=== PATIENT | male | born 1950 | race Hispanic/Latino ===

== ENCOUNTER 2018-06-10 09:54 | Emergency (ER) | payer OTHER ==
[~2018-06-10] VITALS: Ht 165.1 cm; Wt 88.5 kg
[~2018-06-10 09:54] MED LIST: ASPIR 8181 MG PO; DETROL2 MG PO; ESCITALOPRAM OX10 MG PO; HYDROXYZINE HCL25 MG PO; LACTULOSE10 GM/15 M PO; NADOLOL20 MG PO; NITROSTAT0.4 MG SL; SALSALATE500 MG PO; XIFAXAN550 MG PO
--- NOTE | 2018-06-10 14:40 | EKG ---
[facility] [address] [place], [place] [address] Signed Sinus bradycardia Otherwise normal ECG No previous ECGs available Confirmed by LIZBETH SANTIAGO MD ([id number]) on 06/10/2018 2:40:37 PM Electronically Signed By: LIZBETH SANTIAGO MD 06/10/18 1440 PATIENT NAME: IVÁN JEREZ Electrocardiogram DATE OF : 50 PHYSICIAN: LIZBETH SANTIAGO MD REPORT #: [id number] REPORT IS CONFIDENTIAL AND NOT TO BE RELEASED WITHOUT AUTHORIZATION
== END 2018-06-10 13:45 | disposition home or self-care (01) ==
LOC: ED 09:54
DX: R07.9 Chest pain, unspecified (principal); I25.10 Atherosclerotic heart disease of native coronary artery without angina pectoris; I25.2 Old myocardial infarction; Z87.891 Personal history of nicotine dependence; Z79.899 Other long term (current) drug therapy; Z79.82 Long term (current) use of aspirin
CPT/HCPCS: 71045; 80053; 84484; 85025; 93005; 93010; 99285

== ENCOUNTER 2018-12-05 21:02 | Emergency (ER) | payer OTHER ==
[~2018-12-05] VITALS: Ht 165.1 cm; Wt 86.2 kg
[2018-12-05] MEDS ORDERED: SPIRONOLACTONE25 MG PO (21:31)
--- NOTE | 2018-12-06 07:34 | EKG ---
[facility] [address] [facility] [place], [place] [address] Signed Normal sinus rhythm Possible Anterior infarct , age undetermined Abnormal ECG When compared with ECG of 10-JUN-2018 09:57, No significant change was found Confirmed by LIZBETH SANTIAGO MD ([id number]) on 12/06/2018 7:34:23 AM Electronically Signed By: LIZBETH SANTIAGO MD 12/06/18 0734 PATIENT NAME: SOLITARIOIVÁN Electrocardiogram DATE OF : 50 PHYSICIAN: LIZBETH SANTIAGO MD REPORT #: [id number] REPORT IS CONFIDENTIAL AND NOT TO BE RELEASED WITHOUT AUTHORIZATION
== END 2018-12-06 00:03 | disposition home or self-care (01) ==
LOC: ED 21:02
DX: R07.9 Chest pain, unspecified (principal); I25.2 Old myocardial infarction; Z87.891 Personal history of nicotine dependence; Z91.041 Radiographic dye allergy status; Z79.899 Other long term (current) drug therapy; Z79.82 Long term (current) use of aspirin
CPT/HCPCS: 71045; 80053; 84484; 85025; 93005; 93010; 99285-25

== ENCOUNTER 2019-06-08 11:35 | Emergency (ER) | payer OTHER ==
[~2019-06-08] VITALS: Ht 165.1 cm; Wt 86.2 kg
[~2019-06-08 11:35] MED LIST changes: +SPIRONOLACTONE25 MG PO
--- NOTE | 2019-06-09 11:26 | EKG ---
[facility] [address] [place] [address] Signed Sinus bradycardia Nonspecific T wave abnormality Abnormal ECG Confirmed by JOSE HUERTA MD ([id number]) on 06/09/2019 11:25:57 AM Electronically Signed By: JOSE HUERTA MD 06/09/19 1126 PATIENT NAME: IVÁN JEREZ Electrocardiogram DATE OF : 50 PHYSICIAN: JOSE HUERTA MD REPORT #: [id number] REPORT IS CONFIDENTIAL AND NOT TO BE RELEASED WITHOUT AUTHORIZATION
== END 2019-06-08 14:32 | disposition home or self-care (01) ==
LOC: ED 11:35
DX: R07.9 Chest pain, unspecified (principal); K76.9 Liver disease, unspecified; F41.9 Anxiety disorder, unspecified; I25.2 Old myocardial infarction; Z87.891 Personal history of nicotine dependence; Z95.0 Presence of cardiac pacemaker; Z91.041 Radiographic dye allergy status; Z79.899 Other long term (current) drug therapy; Z79.82 Long term (current) use of aspirin
CPT/HCPCS: 80053; 84484; 85025; 93005; 93010; 99285-25

== ENCOUNTER 2019-06-09 07:48 | Emergency (ER) | payer OTHER ==
[~2019-06-09] VITALS: Ht 165.1 cm; Wt 86.2 kg
--- OUTSIDE RECORDS SUMMARY | 2019-06-09 07:50 | XMS ---
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 [place] has no Care Guidelines for this patient. [facility] ([facility] MO.) [facility] T[facility] 4 NOTE: Visits indicate total known visits. ED/C VISIT TRACKING (12 MO.) 06/09/2019 07:[address] 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
--- NOTE | 2019-06-10 09:17 | EKG ---
[facility] [address] [place] [address] Signed Sinus bradycardia with premature atrial complexes Possible Anterior infarct , age undetermined Abnormal ECG When compared with ECG of 08-JUN-2019 11:40, (Unconfirmed) premature atrial complexes are now present Confirmed by JOSE HUERTA MD ([id number]) on 06/10/2019 9:17:07 AM Electronically Signed By: JOSE HUERTA MD 06/10/19 0917 PATIENT NAME: IVÁN JEREZ Electrocardiogram DATE OF : 50 PHYSICIAN: JOSE HUERTA MD REPORT #: [id number] REPORT IS CONFIDENTIAL AND NOT TO BE RELEASED WITHOUT AUTHORIZATION
[2019-06-10] MEDS ORDERED: ESCITALOPRAM OX10 MG PO (10:50)
[2019-06-10] MEDS ORDERED: LACTULOSE10 GM/15 M PO ×2 (10:54→10:56)
[2019-06-10] MEDS ORDERED: DETROL2 MG PO (10:54)
== END 2019-06-09 10:05 | disposition home or self-care (01) ==
LOC: ED 07:48
PROC: 0T9B70Z Drainage of Bladder with Drainage Device, Via Natural or Artificial Opening (ICD-10-PCS; principal; 2019-06-09)
DX: R41.82 Altered mental status, unspecified (principal); K72.90 Hepatic failure, unspecified without coma; I25.2 Old myocardial infarction; Z87.891 Personal history of nicotine dependence; Z95.5 Presence of coronary angioplasty implant and graft; Z91.041 Radiographic dye allergy status; Z79.899 Other long term (current) drug therapy
CPT/HCPCS: 51701; 70450; 80053; 81001; 82140; 84484; 85025; 85610; 85730; 93005; 93010; 99285-25; G0480; J7040

== ENCOUNTER 2019-06-09 12:44 | Observation (INO) | payer OTHER ==
[~2019-06-09] VITALS: Ht 165.1 cm; Wt 93.0 kg
--- OUTSIDE RECORDS SUMMARY | 2019-06-09 12:46 | XMS ---
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 Itzel has no Care Guidelines for this patient. Mag VISIT COUNT (12 MO.) 5 [facility] [place] [facility]. TOTAL 5 NOTE: Visits indicate total known visits. ED/C VISIT TRACKING (12 MO.) 06/09/2019 12:44 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
--- NOTE | 2019-06-09 15:25 | NUR ---
CALL TO DR. HUERTA, REPORTED BLADDER SCAN 580 ML AND PATIENT RESTLESS IN BED TENSE AND MOANING. PATIENT STATES " I NEED TO PEE" WHEN SET UP WITH URINAL IS UNABLE TO URINATE FROM BED. CORRECTION OFFICERS REPORT PATIENT HAS BEEN NEEDING TO STAND TO PEE WITH 4 PEOPLE. NO NEW ORDERS AT THIS TIME. CONTINUE TO ATTEMPT TO ASSIST PATIENT TO URINATE.
--- NOTE | 2019-06-09 16:15 | NUR ---
PATIENT UP TO BSC 2 PERSON ASSIST WITH CORRECTIONAL GUAURDS STANDING BY. PATIENT [place] AND [place] [facility] FOLLOW DIRECTION. APPEARS ANXIOUS, BOWEL MOVEMENT X1 STOOD TO URINATE 50 ML CONCENTRATATED URINE. BACK TO BED. VICE PRESIDENT OF COMMUNICATIONS IN ROOM, CALL LIGHT WITHIN REACH.
--- NOTE | 2019-06-09 16:45 | NUR ---
PATIENT APPEARS RESTLESS IN BED, GRUNTING. 2 PERSON ASSIST WITH GAIT BELT ON ASSISTED PATIENT INTO BATHROOM TO SIT ON TOILET. LARGE LOOSE BM, PATIENT STOOD TO URINATE X2 ATTEMPTS. 350 ML OF CONCENTRATED URINE. BACK TO BED, PATIENT APPEARS CALM. NOW RESTING BACK IN BED WITH EYES CLOSED. VS STABLE.
--- NOTE | 2019-06-09 19:29 | NUR ---
PT REPORT RECIEVED FROM NENA SPANGLER. PT UP IN BATHROOM AT THIS TIME. STATES HE IS NOT FINISHED HAVING A BOWEL MOVEMENT. EOCI GUARDS IN ROOM WITH PATIENT AT THIS TIME.
--- NOTE | 2019-06-09 20:59 | NUR ---
IN ROOM FOR MEDICAITON ADMINISTRATION AND ASSESSMENT. PT ABLE TO SIT ON SIDE OF BED WITH TWO PERSON ASSIST AND TAKE MEDICATIONS. ABLE TO DRINK WATER WITHOUT ISSUE. PT CONTINUES TO BE DISORIENTED TO LOCATION AND SITUATION BUT CAN FOLLOW VERBAL COMMANDS. SPEAKING IN UNINTELLIGIBLE SENTENCES. PT BACK IN BED. TWO PERSON ASSIST TO REPOSITION. GAURDS REMAIN AT BEDSIDE.
--- NOTE | 2019-06-09 21:49 | NUR ---
PT NEEDS TO HAVE BOWEL MOVEMENT. TWO PERSON ASSIST REQUIRED FOR AMBUATION. PT STEADY ON HIS FEET.
--- NOTE | 2019-06-09 22:54 | NUR ---
PT ARRIVED AT 2245 VIA BED FROM ICU, PT WEARING 4 POINT SHACKLES. ACOMPANIED BY 2 EOIC GUARDS. PT ORIENTED TO SELF, AND AFTER SEVERAL CUES REMEMBERED WHO THE PRESIDENT OF THE [place] WAS. INVOLUNTARY ALL OVER TREMORS PRESENT, INVOLUNTARY MOUTH TWITCHING PRESENT TOO. SLOW TO RESPONDS AND UNABLE TO FOLLOW SOME COMMANDS. PT HAS BEEN NPO WITH AAT DIET, IVF INFUSING, PT DENIES C/O PAIN
--- NOTE | 2019-06-09 23:43 | NUR ---
2 PA TO BEDSIDE COMMODE AND BACK TO BED.
--- NOTE | 2019-06-10 00:22 | NUR ---
2 PA BEDSIDE COMMODE USING GAIT BELT.
--- NOTE | 2019-06-10 03:22 | NUR ---
UP TO BSC, HAD DARK COLORED ORANGE-LIGHT ANTONIO COLORED URINE PLUS LIQUID BM, PT CONTINUES TO BE SLOW TO RESPOND, HAVING TROUBLE FOLLOWING INSTRUCTIONS, REQUIRING SEVERAL CUES. VERY STIFF LOWER EXTREMITIES, CONTINUES TO HAVE INVOLUNTARY MUSCLE TREMORS, DECREASED INVOLUNTARY MOUTH TREMORS. WEARING 4POINT METAL SHACKLES, 2 EOCI GUARDS IN ROOM
--- NOTE | 2019-06-10 06:16 | NUR ---
Pt continues to have slow response to instructions, and requires several cues speech clear but random talk. Up to bsc with 2PA, stiffness of legs noted. good cms. wearing and tolerating SCDS, wearing 4 point metal shackles and 2 EOCI guards in room. Tolerating liquids well, no n/v. Continues on Lactulose QID. and having small amount of liquid bms.
--- NOTE | 2019-06-10 08:12 | NUR ---
PT SITTING UP IN BED AWAKE. 2 CORRECTIONAL OFFICERS AT BEDSIDE. PT C/O ABD CRAMPING, HYPERACTIVE BT NOTED. PT ORIENTED TO SELF ONLY, THINKS HE IS AT THE [facility] STILL, UNABLE TO ANSWER DATE APPROPRIATELY. GETS EASILY DISTRACTED AND CANNOT HOLD HIS TRAIN OF THOUGHT. [address]RA[address]TS IN PLACE, SKIN GROSSLY INTACT. IV INFUSING WNL, FLUSHES EASILY, DRESSING CDI. BREAKFAST ORDERED. CALL LIGHT WITHIN REACH.
--- NOTE | 2019-06-10 08:16 | NUR ---
FAXED TO [facility] [phone] SENT: FACE SHEET/ED REPORTS/H&P. FAX CONFIRMATION RECEIVED 06/10/19 801AM.
[2019-06-10] MEDS ORDERED: ESCITALOPRAM OX10 MG PO (10:50)
[2019-06-10] MEDS ORDERED: DETROL2 MG PO (10:54)
[2019-06-10] MEDS ORDERED: LACTULOSE10 GM/15 M PO ×2 (10:54→10:56)
--- NOTE | 2019-06-10 11:05 | NUR ---
ORTHOSTATS PERFORMED PER DR. HUERTA VERBAL ORDER. SEE CHART NOTES. PT ASYMPTOMATIC. PT VERY TEARFUL WHILE THIS RN IN ROOM. STATED HE JUST WANTS TO SEE HIS DAUGHTER AND . DENIES PAIN BUT STATES "I JUST DON'T FEEL GOOD." THERAPEUTIC COMMUNICATION PROVIDED. 2 CORRECTIONAL OFFICERS AT BEDSIDE. CALL LIGHT WITHIN REACH.
--- NOTE | 2019-06-11 09:23 | NUR ---
FAXED TO [facility] [phone] SENT: DISCHARGE PACKET. FAX CONFIRMATION RECEIVED 06/11/19 813AM.
== END 2019-06-10 11:45 | disposition home or self-care (01) ==
LOC: ED 12:44 → MS 12:45 → CCU 12:46 → MS 22:51
PROVIDERS: ADMIT Internal Medicine
DX: K72.10 Chronic hepatic failure without coma (principal); K70.30 Alcoholic cirrhosis of liver without ascites; I25.10 Atherosclerotic heart disease of native coronary artery without angina pectoris; K76.6 Portal hypertension; I85.10 Secondary esophageal varices without bleeding; D61.818 Other pancytopenia; D73.1 Hypersplenism; F43.21 Adjustment disorder with depressed mood; F41.8 Other specified anxiety disorders; Z95.1 Presence of aortocoronary bypass graft; Z91.041 Radiographic dye allergy status; Z79.2 Long term (current) use of antibiotics; Z79.82 Long term (current) use of aspirin; Z79.899 Other long term (current) drug therapy
CPT/HCPCS: 36415; 82140; 99285; G0378; J7120; J7121

== ENCOUNTER 2020-11-20 06:00 | Day surgery (SDC) | payer OTHER ==
[~2020-11-20] VITALS: Ht 165.1 cm; Wt 94.6 kg
--- NOTE | 2020-11-20 06:38 | NUR ---
STATES FELL IN STAIRWELL A COUPLE WEEKS AGO. REC'D COVID VACCINE 11/19/20 AND HAS FEVER DIZZINESS AND HEADACHE.
--- NOTE | 2020-11-20 06:49 | NUR ---
0615- SWABBED BOTH NARES FOR RAPID COVID TEST
--- NOTE | 2020-11-20 08:00 | NUR ---
11/20/20 0800 Yuliana Childress 0755 PATIENT ARRIVES TO PACU SLEEPING, AWAKENS WITH VERBAL STIMULI. RESP EVEN AND UNLABORED, NC AT 3 LITERS.
--- NOTE | 2020-11-20 11:20 | OR ---
[facility] [address] [place], [place] [address] Signed DATE OF OPERATION: 11/20/2020 SURGEON: Svetlana Green MD PREOPERATIVE DIAGNOSES: Hepatitis C-related cirrhosis, history of grade 1 varices, 2018. POSTOPERATIVE DIAGNOSES: 1. No evidence of esophageal varices currently; antral gastritis. 2. Unilateral varix of the vallecula. PROCEDURE: Esophagogastroduodenoscopy with biopsy. ANESTHESIA: Intravenous sedation with fentanyl 100 mcg and Versed 3 mg. INDICATION: This 70-year-old man is at [facility] as a prisoner and was evaluated in 2018 by me with upper endoscopy to assess for portal hypertension. He was thought to have at that time grade 1 esophageal varices. He has been on appropriate therapy since that time including spironolactone, Lasix, and other medicines. Additionally, he has been on RIFAXIMIN. . He is considered to have cirrhosis related to hepatitis C in the past. He has had no hematemesis or other signs of bleeding. He is referred for surveillance upper endoscopy to assess for varices. The risks of bleeding, infection, perforation, and so forth were reviewed with him, he understands and wished to proceed. FINDINGS: Notably, I saw no evidence of esophageal varices. He did however have a vallecular varix on the right side, which was quite prominent. There was no stigmata of recent bleeding. Duodenum was normal. He did have mild antral gastritis. DESCRIPTION OF PROCEDURE: The patient was brought to the endoscopy suite, given topical lidocaine spray anesthesia and placed in lateral decubitus position. He was given intravenous sedation to the point of slurred speech and nystagmus with full cardiopulmonary monitoring. A bite block was placed. An Olympus video upper endoscope was passed in the hypopharynx. Close inspection of the vallecular showed a varix to the right side. It is quite prominent, but with no signs of recent bleeding or distant bleeding. The left side was Electronically Signed By: SVETLANA GREEN MD 11/20/20 1120 PATIENT NAME: IVÁN JEREZ OPERATIVE REPORT DATE OF : 50 REPORT #: [id number] PHYSICIAN: SVETLANA GREEN MD PCP: PATRICIA NOVOA NP REPORT IS CONFIDENTIAL AND NOT TO BE RELEASED WITHOUT AUTHORIZATION [facility] [address] [place], [place] [address] Signed normal. The scope was advanced to the esophagus and throughout its length, it was normal without any sign of varices. This is in contradistinction to those findings of three years ago. The scope was then advanced to the stomach, which showed mild antral gastritis. Gastric folds appeared normal. Antral motility was normal. Pylorus was normal. Scope was passed through into the duodenum, which was normal. The scope was withdrawn to the antrum for LEI and pathologic biopsies. Retroflexed view showed reasonably normal flap valve. There was no sign of gastric varices. The scope was withdrawn and careful inspection of the distal and remaining esophagus showed no varices at this time. Careful inspection once again of the vallecular did show the varices in that area. The scope was withdrawn and removed. The patient was taken to the recovery room in good condition. CONCLUDING DIAGNOSIS: No clear evidence of esophageal varices at this time, but he does have a vallecular varices or complex. He has had no evidence of bleeding from this. In general terms such varices should be considered for ablation either by injection or excision. No rare and uncommon, I have seen at least one episode of vallecular variceal bleeding and it can be significant. I would recommend referral to an ENT surgeon willing to consider ablation of the vallecular varix. PLAN: Continued medications as is; consideration of referral to ENT for vallecular variceal ablation. I am happy to see [facility] his providers at [facility]. MD CAMMIE Steiner/MODL /[id number] cc: Patricia Novoa NP Copies: PATRICIA NOVOA MANAGEMENT PROFESSIONAL Electronically Signed By: SVETLANA GREEN MD 11/20/20 1120 PATIENT NAME: IVÁN JEREZ OPERATIVE REPORT DATE OF : 50 REPORT #: [id number] PHYSICIAN: SVETLANA GREEN MD PCP: PATRICIA NOVOA NP REPORT IS CONFIDENTIAL AND NOT TO BE RELEASED WITHOUT AUTHORIZATION [facility] [address] [place] [address] Signed ~ Electronically Signed By: SVETLANA GREEN MD 11/20/20 1120 PATIENT NAME: JEREZIVÁN M OPERATIVE REPORT DATE OF : 50 REPORT #: [id number] PHYSICIAN: SVETLANA GREEN MD PCP: PATRICIA NOVOA NP REPORT IS CONFIDENTIAL AND NOT TO BE RELEASED WITHOUT AUTHORIZATION
== END 2020-11-20 08:30 | disposition home or self-care (01) ==
LOC: OPS 06:00 → DS 06:00 → OPS 06:45
PROVIDERS: ATTEND Surgery
PROC: 0DB78ZZ Excision of Stomach, Pylorus, Via Natural or Artificial Opening Endoscopic (ICD-10-PCS; principal; 2020-11-20 06:45)
DX: B19.20 Unspecified viral hepatitis C without hepatic coma (principal); Z20.822 Contact with and (suspected) exposure to COVID-19
CPT/HCPCS: C9803; J2250; J3010; J7121

== ENCOUNTER 2021-01-16 10:03 | Emergency (ER) | payer OTHER ==
[~2021-01-16] VITALS: Ht 165.1 cm; Wt 90.7 kg
[2021-01-16] MEDS ORDERED: OMEPRAZOLE20 MG PO (10:43)
[2021-01-16] MEDS ORDERED: SYNTHROID25 MCG PO (10:45)
[2021-01-16] MEDS ORDERED: LIPITOR10 MG PO (10:47)
[2021-01-16] MEDS ORDERED: MELATONIN10 M3 PO (10:47)
[2021-01-16] MEDS ORDERED: CONSTULOSE10 GM/15 M PO (10:47)
[2021-01-16] MEDS ORDERED: FUROSEMIDE20 MG PO (10:48)
[2021-01-16] MEDS ORDERED: HYDROXYZINE HCL50 MG PO (10:49)
[2021-01-16] MEDS ORDERED: ONDANSETRON ODT8 MG PO (12:34)
== END 2021-01-16 12:55 | disposition home or self-care (01) ==
LOC: ED 10:03
DX: K72.90 Hepatic failure, unspecified without coma (principal); I25.2 Old myocardial infarction; Z91.041 Radiographic dye allergy status; Z79.899 Other long term (current) drug therapy; Z79.82 Long term (current) use of aspirin
CPT/HCPCS: 71045; 80053; 81001; 82140; 84484; 85025; 99285-25; J7030

== ENCOUNTER 2021-08-25 11:05 | Emergency (ER) | payer OTHER ==
[~2021-08-25] VITALS: Ht 165.1 cm; Wt 81.7 kg
[~2021-08-25 11:05] MED LIST changes: +CONSTULOSE10 GM/15 M PO; +FUROSEMIDE20 MG PO; +HYDROXYZINE HCL50 MG PO; +LIPITOR10 MG PO; +MELATONIN10 M3 PO; +OMEPRAZOLE20 MG PO; +ONDANSETRON ODT8 MG PO; +SYNTHROID25 MCG PO
[2021-08-25] MEDS ORDERED: COREG6.25 MG PO (12:52)
[2021-08-25] MEDS ORDERED: CALCIUM CITRAT1 EAC3 PO (12:52)
[2021-08-25] MEDS ORDERED: DICLOFENAC SOD100 G1 TOP (12:54)
[2021-08-25] MEDS ORDERED: POTASSIUM CHLO20 ME1 PO (12:55)
[2021-08-25] MEDS ORDERED: VITAMIN D325 MCG PO (12:56)
[2021-08-25] MEDS ORDERED: CEPHALEXIN500 M1 PO (15:56)
--- NOTE | 2021-08-26 18:54 | EKG ---
[facility] [address] [facility] [place] [address] Signed Normal sinus rhythm Possible Anterior infarct (cited on or before 09-JUN-2019) Abnormal ECG When compared with ECG of 09-JUN-2019 08:17, premature atrial complexes are no longer present Nonspecific T wave abnormality no longer evident in Lateral leads Confirmed by LIZBETH SANTIAGO MD ([id number]) on 08/26/2021 6:53:46 PM Electronically Signed By: LIZBETH SANTIAGO MD 08/26/21 1854 PATIENT NAME: IVÁN JEREZ Electrocardiogram DATE OF : 50 PHYSICIAN: LIZBETH SANTIAGO MD REPORT #: [id number] REPORT IS CONFIDENTIAL AND NOT TO BE RELEASED WITHOUT AUTHORIZATION
== END 2021-08-25 17:02 | disposition home or self-care (01) ==
LOC: ED 11:05
DX: N39.0 Urinary tract infection, site not specified (principal); K74.60 Unspecified cirrhosis of liver; E72.20 Disorder of urea cycle metabolism, unspecified; I25.2 Old myocardial infarction; I10 Essential (primary) hypertension; Z91.041 Radiographic dye allergy status; Z79.899 Other long term (current) drug therapy
CPT/HCPCS: 70450; 70496; 70498; 70551; 71045; 80053; 80500; 81001; 82140; 83735; 84484; 85025; 85610; 87088; 93005; 93010; 99285-25; J0696; J1100; J1200; Q9967

== ENCOUNTER 2021-11-05 11:19 | Emergency (ER) | payer OTHER ==
[~2021-11-05] VITALS: Ht 165.1 cm; Wt 75.8 kg
[~2021-11-05 11:19] MED LIST changes: +CALCIUM CITRAT1 EAC3 PO; +CEPHALEXIN500 M1 PO; +COREG6.25 MG PO; +DICLOFENAC SOD100 G1 TOP; +POTASSIUM CHLO20 ME1 PO; +VITAMIN D325 MCG PO
[2021-11-06] MEDS ORDERED: ATIVAN1 MG PO (05:47)
[2021-11-06] MEDS ORDERED: NITROSTAT0.4 MG SL (05:51)
[2021-11-06] MEDS ORDERED: VITAMIN B-1100 M1 PO (05:53)
[2021-11-06] MEDS ORDERED: VITAMIN D3250 MC2 PO (05:54)
== END 2021-11-05 13:37 | disposition home or self-care (01) ==
LOC: ED 11:19
DX: S00.03XA Contusion of scalp, initial encounter (principal); I25.2 Old myocardial infarction; I10 Essential (primary) hypertension; Z91.041 Radiographic dye allergy status; Z79.899 Other long term (current) drug therapy; W19.XXXA Unspecified fall, initial encounter; W22.8XXA Striking against or struck by other objects, initial encounter
CPT/HCPCS: 70450; 72125; 99284-25

== ENCOUNTER 2021-11-06 05:24 | Emergency (ER) | payer OTHER ==
[~2021-11-06] VITALS: Ht 165.1 cm; Wt 75.3 kg
[2021-11-06] MEDS ORDERED: ATIVAN1 MG PO (05:47)
[2021-11-06] MEDS ORDERED: NITROSTAT0.4 MG SL (05:51)
[2021-11-06] MEDS ORDERED: VITAMIN B-1100 M1 PO (05:53)
[2021-11-06] MEDS ORDERED: VITAMIN D3250 MC2 PO (05:54)
== END 2021-11-06 07:18 | disposition home or self-care (01) ==
LOC: ED 05:24
DX: S01.112A Laceration without foreign body of left eyelid and periocular area, initial encounter (principal); S16.1XXA Strain of muscle, fascia and tendon at neck level, initial encounter; S06.0X1A Concussion with loss of consciousness of 30 minutes or less, initial encounter; K72.10 Chronic hepatic failure without coma; I25.2 Old myocardial infarction; I10 Essential (primary) hypertension; Z91.041 Radiographic dye allergy status; Z79.899 Other long term (current) drug therapy; W19.XXXA Unspecified fall, initial encounter; W22.8XXA Striking against or struck by other objects, initial encounter
CPT/HCPCS: 12013; 70450; 72125; 99283-25